=== PATIENT | male | born 1985 | race Caucasian/White ===

== ENCOUNTER 2019-12-10 05:55 | Inpatient (IN) ==
[2019-12-10] MEDS ORDERED: 0.9 % Sodium Chloride 1,000 ML IVC ONE (06:05)
[2019-12-10 06:26] LABS: Basophils % 0.2 %; Eosinophils # 0.5 K/mcL (0.0-0.6); Eosinophils % 3.1 %; Hematocrit 48.2 % (37.5-50.1); Hemoglobin 15.8 g/dL (12.9-16.9); Immature Granulocytes % 0.3 % (0-4); Lymphocytes # 1.4 K/mcL (0.6-4.6); Mean Corpuscular HGB Conc 32.8 g/dL (31.6-35.5); Mean Corpuscular Hemoglobin 28.3 pg (28.0-33.3); Mean Corpuscular Volume 86.4 fL (83.0-100.0); Mean Platelet Volume 11.3 fL (9.4-12.4); Monocytes # 1.7 K/mcL (0.0-1.3); Monocytes % 9.6 %; Neutrophils # 13.6 K/mcL (1.6-8.9); Platelet Count 313 K/mcL (140-400); Red Blood Count 5.58 M/mcL (4.19-5.50); Red Cell Distribution Width 13.4 % (11.5-14.5); Segmented Neutrophils % 78.8 %; White Blood Count 17.3 K/mcL (4.3-11.1)
[2019-12-10] MEDS ORDERED: levoFLOXacin 750 MG/150 ML 750 MG/150 ML BAG IVPB ONE (06:42)
[2019-12-10 06:46] LABS: BUN/Creatinine Ratio 13 (6-26); Blood Urea Nitrogen 12 mg/dL (6-20); Calcium 9.6 mg/dL (8.6-10.3); Carbon Dioxide 27 mEq/L (23-29); Chloride 102 mEq/L (98-107); Glucose 111 mg/dL (70-105); Osmolality,Calculated 290 (280-300); Potassium 3.7 mEq/L (3.5-5.1); Sodium 140 mEq/L (136-145); eGFR For African Americans > 60 (> 60); eGFR For Non-African Americans > 60 (> 60)
[2019-12-10] MEDS ORDERED: methylPREDNISolone 125 MG/2 ML VIAL IVP ONE (06:56)
[2019-12-10] MEDS ORDERED: Ondansetron 4 MG/2 ML VIAL IVP PRN (07:30)
[2019-12-10] MEDS ORDERED: Ipratropium/Albuterol Neb 3 ML IH PRN (07:34)
[2019-12-10] MEDS ORDERED: Acetaminophen 325 MG TABLET PO PRN (07:35)
[2019-12-10] MEDS: Ringers Solution, Lactated 1,000 ML IVC SCH ×2 (10:44→20:51)
[2019-12-10 14:11] LABS: Adenovirus Not Detected (Not Detect); Coronavirus 229E Not Detected (Not Detect); Coronavirus HKU1 Not Detected (Not Detect); Coronavirus NL63 Not Detected (Not Detect); Coronavirus OC43 Not Detected (Not Detect); Human Metapneumovirus Not Detected (Not Detect); Human Rhinovirus/Enterovirus DETECTED (Not Detect); Influenza A Subtype 2009 H1 Not Detected (Not Detect); Influenza B Not Detected (Not Detect); Parainfluenza Virus 1 Not Detected (Not Detect); Parainfluenza Virus 2 Not Detected (Not Detect); Parainfluenza Virus 3 Not Detected (Not Detect)
[2019-12-10 14:12] LABS: Bordetella Pertussis Not Detected (Not Detect); Chlamydophila pneumoniae Not Detected (Not Detect); Mycoplasma pneumoniae Not Detected (Not Detect); Parainfluenza Virus 4 Not Detected (Not Detect); Respiratory Syncytial Virus Not Detected (Not Detect)
[2019-12-10] MEDS: *HR* Heparin 5,000 UNIT/ML VIAL SQ SCH (18:49)
[2019-12-11 01:01] LABS: Basophils % 0.1 %; Hematocrit 48.8 % (37.5-50.1); Hemoglobin 15.8 g/dL (12.9-16.9); Immature Granulocytes % 0.4 % (0-4); Lymphocytes # 1.1 K/mcL (0.6-4.6); Lymphocytes % 5.6 %; Mean Corpuscular HGB Conc 32.4 g/dL (31.6-35.5); Mean Corpuscular Hemoglobin 28.3 pg (28.0-33.3); Mean Corpuscular Volume 87.3 fL (83.0-100.0); Mean Platelet Volume 11.4 fL (9.4-12.4); Monocytes # 1.5 K/mcL (0.0-1.3); Monocytes % 7.9 %; Neutrophils # 16.5 K/mcL (1.6-8.9); Platelet Count 327 K/mcL (140-400); Red Blood Count 5.59 M/mcL (4.19-5.50); Red Cell Distribution Width 13.8 % (11.5-14.5); White Blood Count 19.2 K/mcL (4.3-11.1)
[2019-12-11 01:18] LABS: BUN/Creatinine Ratio 17 (6-26); Blood Urea Nitrogen 13 mg/dL (6-20); Calcium 9.6 mg/dL (8.6-10.3); Carbon Dioxide 23 mEq/L (23-29); Chloride 104 mEq/L (98-107); Glucose 104 mg/dL (70-105); Osmolality,Calculated 288 (280-300); Potassium 4.2 mEq/L (3.5-5.1); Sodium 139 mEq/L (136-145); eGFR For African Americans > 60 (> 60); eGFR For Non-African Americans > 60 (> 60)
[2019-12-11] MEDS: *HR* Heparin 5,000 UNIT/ML VIAL SQ SCH ×2 (04:49→17:09)
[2019-12-11] MEDS: Ringers Solution, Lactated 1,000 ML IVC SCH (07:01)
[2019-12-11] MEDS: levoFLOXacin 750 MG/150 ML 750 MG/150 ML BAG IVPB SCH (08:01)
[2019-12-11] MEDS ORDERED: Ipratropium Neb 0.5 MG NEBULIZER IH PRN (08:28)
[2019-12-11] MEDS: Levalbuterol Neb 0.63 MG/3 ML IH SCH ×3 (09:27→21:50)
[2019-12-11] MEDS: predniSONE 20 MG TABLET PO SCH (10:54)
[2019-12-12 02:08] LABS: Basophils % 0.2 %; Eosinophils # 0.1 K/mcL (0.0-0.6); Eosinophils % 0.5 %; Hematocrit 45.4 % (37.5-50.1); Hemoglobin 14.7 g/dL (12.9-16.9); Immature Granulocytes % 0.3 % (0-4); Lymphocytes # 1.9 K/mcL (0.6-4.6); Lymphocytes % 14.9 %; Mean Corpuscular HGB Conc 32.4 g/dL (31.6-35.5); Mean Corpuscular Hemoglobin 28.8 pg (28.0-33.3); Mean Platelet Volume 11.6 fL (9.4-12.4); Monocytes # 1.2 K/mcL (0.0-1.3); Monocytes % 9.4 %; Neutrophils # 9.4 K/mcL (1.6-8.9); Platelet Count 272 K/mcL (140-400); Red Cell Distribution Width 13.8 % (11.5-14.5); Segmented Neutrophils % 74.7 %; White Blood Count 12.6 K/mcL (4.3-11.1)
[2019-12-12] MEDS: Levalbuterol Neb 0.63 MG/3 ML IH SCH ×4 (03:53→21:55)
[2019-12-12] MEDS: *HR* Heparin 5,000 UNIT/ML VIAL SQ SCH ×2 (04:53→17:10)
[2019-12-12] MEDS: levoFLOXacin 750 MG/150 ML 750 MG/150 ML BAG IVPB SCH (08:24)
[2019-12-12] MEDS: predniSONE 20 MG TABLET PO SCH (08:24)
[2019-12-12] MEDS ORDERED: Ringers Solution, Lactated 1,000 ML IVC SCH (15:45)
[2019-12-13 01:35] LABS: Basophils % 0.2 %; Eosinophils # 0.1 K/mcL (0.0-0.6); Eosinophils % 0.6 %; Hematocrit 47.1 % (37.5-50.1); Hemoglobin 15.1 g/dL (12.9-16.9); Immature Granulocytes % 0.4 % (0-4); Lymphocytes # 2.4 K/mcL (0.6-4.6); Mean Corpuscular HGB Conc 32.1 g/dL (31.6-35.5); Mean Corpuscular Hemoglobin 28.8 pg (28.0-33.3); Mean Corpuscular Volume 89.9 fL (83.0-100.0); Mean Platelet Volume 11.4 fL (9.4-12.4); Monocytes # 1.3 K/mcL (0.0-1.3); Neutrophils # 9.5 K/mcL (1.6-8.9); Platelet Count 318 K/mcL (140-400); Red Blood Count 5.24 M/mcL (4.19-5.50); Red Cell Distribution Width 13.6 % (11.5-14.5); Segmented Neutrophils % 70.8 %; White Blood Count 13.4 K/mcL (4.3-11.1)
[2019-12-13] MEDS: Levalbuterol Neb 0.63 MG/3 ML IH SCH ×2 (03:48→08:57)
[2019-12-13] MEDS: *HR* Heparin 5,000 UNIT/ML VIAL SQ SCH (05:06)
[2019-12-13 07:13] VITALS: BP 130/76
[2019-12-13] MEDS ORDERED: levoFLOXacin 750 MG TABLET PO SCH (09:00)
[2019-12-13] MEDS: predniSONE 20 MG TABLET PO SCH (09:10)
== END 2019-12-13 10:42 | disposition home or self-care (01) | DRG 871 ==
LOC: 2NENU 05:55 → EMEROOARM 05:55 → SUATTDRO 07:26 → 2NENU 08:18
PROVIDERS: ADMIT Internal Medicine; ATTEND Internal Medicine